=== PATIENT | female | born 1970 | race Caucasian/White ===

== ENCOUNTER 2024-02-12 14:29 | Day surgery (SDC) | payer BC, SELFPAY ==
[2024-02-12] VITALS (12 sets, daily range): BP systolic 133–149; BP diastolic 65–83
--- NOTE | 2024-02-12 07:29 | ED.GENMED ---
History of Present Illness
General
Chief Complaint: Abdominal Pain
Source: patient
Exam Limitations: none
Time Seen by Provider: 02/12/24 07:21
Nursing documentation reviewed up to this point in time: agreed with
Travel History
Have you had any contact with someone who has COVID-19?: No
Do you have any symptoms of coronavirus? Fever > 100 degrees, chills, cough, shortness of breath, sore throat, loss of taste or smell, muscle aches, or headache?: No
History of Present Illness
History of Present Illness:
53-year-old female without significant chronic medical conditions presenting to the emergency department today for concerns of right lower quadrant abdominal pain worsening since last night. Symptoms initially vague until ER abdomen now isolated to
the right lower quadrant. Associated nausea and some loose bowel movements. Patient does have an appendix.
Review of Systems
Review of Systems
Allergies reviewed?: Yes
All Other Systems: ROS reviewed and negative except as documented in HPI and ROS
Phy Exam
Physical Exam
Physical Exam:
GENERAL: Alert , in no apparent distress
EYE: pupils equal and reactive
NECK: Supple, no significant adenopathy.
ENT: o/p clr, mmm.
CARDIAC: Regular rate and rhythm .
LUNGS: Clear breath sounds bilaterally, no acute respiratory distress, no wheezes/rales/rhonchi
ABDOMEN: Right lower quadrant pain.
NEUROLOGICAL: Alert and oriented, no focal neuro deficits
SKIN: Warm and dry, skin intact.
MUSCULOSKELETAL: No edema, well perfused.
PSYCH: Normal and appropriate interaction.
Course
Orders/Labs/Results
Orders:
Orders
02/12/24 07:25
0.9% Sodium Chloride 1000 ml [Nss] 1,000 ml IV BOLUS
Ketorolac [Toradol] 15 mg IV NOW STA
Ondansetron Injectable [Zofran] 4 mg IV NOW STA
02/12/24 07:26
CT Abd/Pel (IV only)-DH only Urgent
Comment:
Reason For Exam: rlq pain
02/12/24 07:38
Complete Blood Count/With Diff Urgent
Comprehensive Metabolic Panel Urgent
Lipase Urgent
02/12/24 10:09
Urinalysis Reflex To Culture Urgent
Date Specimen was Collected: 02/12/24
Time Specimen was Collected: 09:51
02/12/24 11:59
CefTRIAXone [Rocephin] 1,000 mg IV NOW STA
MetroNIDAZOLE 500 MG/100 ML [Flagyl 500 mg] 100 ml IV NOW
02/12/24 12:19
Fentanyl Citrate/Pf [Sublimaze] 100 mcg .ROUTE .STK-MED ONE
Midazolam HCl [Versed] 2 mg .ROUTE .STK-MED ONE
02/12/24 12:25
Lidocaine HCl/Pf [Xylocaine-Mpf 1% Vial] 50 mg .ROUTE .STK-MED ONE
Propofol [Diprivan] 20 ml .ROUTE .STK-MED
Rocuronium [place] [Rocuronium] 50 mg .ROUTE .STK-MED ONE
02/12/24 12:26
Dexamethasone Sod Phosphate [Decadron] 20 mg .ROUTE .STK-MED ONE
Ondansetron Injectable [Zofran] 4 mg .ROUTE .STK-MED ONE
02/12/24 12:30
HYDROmorphone [Dilaudid] 0.25 mg IV PACU-Q5MPRN PRN
HYDROmorphone [Dilaudid] 0.5 mg IV PACU-Q5MPRN PRN
Meperidine [Demerol] 12.5 mg IV PACU-Q5MPRN PRN
Normosol (Mult Electrolytes) [Normosol-R] 1,000 ml IV PER PROTOCOL
Ondansetron Injectable [Zofran] 4 mg IV PACU-ONCEPRN PRN
Prochlorperazine [Compazine] 5 mg IV PACU-ONCEPRN PRN
Notify MD As Directed
Notify physician if: for SDS patients with known or suspected sleep obstructive sleep apnea, monitor in the
PACU.
Notify MD for any apneic/desaturation episodes
O2 Therapy [RESP] Urgent
Titrate/Wean O2 to maintain O2 sat greater than (%): 92
Special Instructions: -Provide supplemental oxygen to achieve O2 sat of 92% or greater.
-After 15 min, may wean O2 and discontinue if patient is able to maintain O2 sat of 92%
or greater during recovery period.
If patient is a discharge home, without oxygen therapy, notify anestheiologist if
unable to maintain O2 SAT of 92% or greater on room air for MD clearance.
Abnormal Lab Results
02/12/24
07:38
WBC 11.8 H 10^3/uL
(4.8-10.8)
Abs Immat Gran (auto) 0.1 H 10^3/uL
(0-0.05)
Absolute Neuts (auto) 8.8 H 10^3/uL
(1.4-6.5)
Absolute Monos (auto) 0.9 H 10^3/uL
(0.1-0.6)
Lymphocytes % 15.8 L %
(20.5-51.1)
Creatinine 0.5 L mg/dL
(0.6-1.0)
Glucose 119 H mg/dl
(70-99)
02/12/24 07:38
02/12/24 07:38
Vital Signs
Initial and Last Documented VS:
Initial Vital Signs
Temp Pulse Resp BP Pulse Ox
98.3 F 104 18 144/83 100
02/12/24 07:00 02/12/24 07:00 02/12/24 07:00 02/12/24 07:00 02/12/24 07:00
Last Documented Vital Signs
Temp Pulse Resp BP Pulse Ox
98.3 F 104 18 144/83 100
02/12/24 07:00 02/12/24 07:00 02/12/24 07:00 02/12/24 07:00 02/12/24 07:00
MDM/Problems Addressed
MDM/Problems Addressed:
53-year-old female presenting to the emergency department today with concerns of right lower quadrant pain starting last night ongoing nausea some loose and bowel movements. Here patient is tenderness palpation of the right lower quadrant
concerning for appendicitis CT scan ordered for further assessment. CT scan showing acute uncomplicated appendicitis. Case discussed with general surgery saw the patient and will prep for surgery. Patient was started on IV antibiotics otherwise
stable throughout ER stay.
*Critical Care Note
Total Time (30-74mins, 75-104mins- exclusive of procedures): Not Applicable
ED Attending Note
-
Portions of this chart may have been created with voice recognition software.� Occasional wrong word or��sound alike� substitutions may have occurred due to the inherent limitations of voice recognition software.
Discharge Plan
Departure
Patient Disposition: Admit
Date of Disposition: 02/12/24
Time of Disposition: 12:02
Admit to: Med/Surg
Admit to doctor: Jose Raul
Presentation/result/management discussed w/ accepting MD/DO: General surgery
Patient with high blood pressure during this ER visit?: No
Condition: Good
Covid-19: Not Applicable
Discharge Problem:
Acute appendicitis
Prescriptions:
No Action
TheraTears 0.25 % Drops
1 drp BOTH EYES DAILY
fluticasone propionate 50 mcg/actuation [place],Suspension
1 spray INTRANASAL DAILY PRN (Reason: nasal congestion)
Referrals:
Carlos Kohler MD [Family Provider] -
Interventions
Interventions:
ED- Fall Risk Assessment Last Done: 02/12/24 08:03
*ED COVID-19 Vaccine History Last Done: 02/12/24 07:00
NW-Qdrzrh-Oldhqgwyon Assessment Last Done: 02/12/24 08:03
Discharge Date and Time
Print Language: FRENCH
[2024-02-12] MEDS: TORADOL 15 MG IV (07:45)
[2024-02-12 07:54] LABS: % Basophils 0.3 % (0-2); % Eosinophils 1.3 % (0-6); % Immature Granulocytes 0.4 % (0-0.5); % Lymphocytes 15.8 % (20.5-51.1); % Monocytes 7.5 % (1.7-9.3); % Neutrophils 74.7 % (42.2-75.2); Absolute Eosinophils 0.2 10^3/uL (0-0.7); Absolute Immature Granulocytes 0.1 10^3/uL (0-0.05); Absolute Lymphocytes 1.9 10^3/uL (1.2-3.4); Absolute Monocytes 0.9 10^3/uL (0.1-0.6); Absolute Neutrophils 8.8 10^3/uL (1.4-6.5); Hematocrit 37.9 % (37.0-47.0); Hemoglobin 12.7 g/dL (12.0-16.0); Mean Corp Hgb Conc. 33.5 g/dL (33.0-37.0); Mean Corpuscular Volume 86.5 fL (81.0-99.0); Mean Platelet Volume 9.4 fL (7.4-10.4); Nucleated Red Blood Cells % 0 %; Platelet Count 291 10^3/uL (130-400); Red Blood Cell Count 4.38 10^6/uL (4.20-5.40); Red Cell Dist. Width 13.6 % (11.5-14.5); White Blood Cell Count 11.8 10^3/uL (4.8-10.8)
[2024-02-12] MEDS: NSS 1000 IV (08:02)
[2024-02-12] MEDS: ZOFRAN 4 MG IV (08:03)
[2024-02-12 08:06] LABS: ALT (SGPT) 26 U/L (0-35); AST (SGOT) 20 U/L (14-36); Albumin 4.3 g/dl (3.5-5.0); Alkaline Phosphatase 71 U/L (38-126); Blood Urea Nitrogen 10 mg/dl (7-17); Calcium 9.5 mg/dl (8.4-10.2); Carbon Dioxide 28 mmol/L (22-30); Chloride 104 mmol/L (98-107); Glucose 119 mg/dl (70-99); Lipase 76 U/L (23-300); Potassium 4.4 mmol/L (3.5-5.1); Sodium 137 mmol/L (135-145); Total Bilirubin 0.5 mg/dl (0.2-1.3); Total Protein 7.1 g/dl (6.3-8.2); eGFR > 60.00
[2024-02-12 10:15] LABS: Urine Albumin Negative (Neg - Trace); Urine Bilirubin Negative (Negative); Urine Character Clear (Clear); Urine Color Yellow; Urine Glucose Negative (Negative); Urine Ketone Negative (Negative); Urine Leukocyte Negative (Negative); Urine Nitrite Negative (Negative); Urine Occult Blood Negative (Negative); Urine Specific Gravity 1.015 (<1.030); Urine Urobilinogen Negative (Neg - 1+)
--- NOTE | 2024-02-12 12:38 | CON.GS ---
Medical History
-
Chief Complaint: RLQ pain
History of Present Illness:
Patient is a 53 yo F with a PMH morbid obesity, GERD, s/p laparoscopic supracervical hysterectomy, s/p diagnostic laparoscopy and removal of endometrial implant, and s/p who presents with approximately 24 hours of RLQ abdominal pain.
Angie states that her symptoms began acutely yesterday afternoon. She initially described more diffuse generalized abdominal pain. Her pain is localized to the RLQ. She describes a sharp pain. Associated nausea, but no vomiting. No fevers or
chills. She reports some looser stools. She denies any chronic GI issues. No personal or family history of IBD or colon cancers. No urinary symptoms.
Past Medical History
Past Medical History: GERD and Other (Obesity)
Past Surgical History: Gynecological (Laparoscopic supracervical hysterectomy, diagnostic laparoscopy and removal of endometrial implant)
Social History
Tobacco: Non-Smoker
Alcohol: Occasional
Drug: None
Personal:
Living: With Family
Family History
Family History: Reviewed & Noncontributory
Allergies / Home Medications
Allergy/AdvReac Type Severity Reaction Status Date / Time
Penicillins Allergy Unknown Verified 02/12/24 07:01
�Medication �Instructions �Recorded �Confirmed �Type
carboxymethylcellulose sodium 0.25 1 drp BOTH EYES DAILY Eye Condition 02/12/24 02/12/24 History
% eye drops (TheraTears)
fluticasone propionate 50 1 spray intranasal DAILY PRN nasal 02/12/24 02/12/24 History
mcg/actuation nasal congestion
spray,suspension
Review of Systems
-
A 10 point review of systems was completed, and was negative except as per HPI.
Physical Exam
Vital Signs
Temp Pulse Resp BP Pulse Ox
98.3 F 104 18 144/83 100
02/12/24 07:00 02/12/24 07:00 02/12/24 07:00 02/12/24 07:00 02/12/24 07:00
Lab Results
02/12/24 07:38
02/12/24 07:38
WBC 11.8 10^3/uL (4.8-10.8) H 02/12/24 07:38
Hgb 12.7 g/dL (12.0-16.0) 02/12/24 07:38
Hct 37.9 % (37.0-47.0) 02/12/24 07:38
Plt Count 291 10^3/uL (130-400) 02/12/24 07:38
Abs Immat Gran (auto) 0.1 10^3/uL (0-0.05) H 02/12/24 07:38
Neutrophils % 74.7 % (42.2-75.2) 02/12/24 07:38
Physical Exam
General: Well Developed, Well Nourished and No Apparent Distress
HEENT: Normocephalic and Anicteric
Respiratory: Non Labored Respirations
Cardiac: Regular Rhythm
GI: Soft, Tender (RLQ), Incisions (Well healed), Obese (Limited exam) and Other (Non-peritoneal)
Musculoskeletal: No Edema
Skin: Warm and Dry
Neuro: Nonfocal/Grossly Intact
Data Reviewed
-
CT Scan: Image Personally Visualized and interpreted and Report Reviewed by me
Labs: Labs Reviewed by me
Assessment / Plan
-
Patient is a 53 yo F p/w acute appendicitis
The natural history and pathophysiology of appendicitis was discussed. Anatomy was reviewed. CT scan imaging as a relates to her appendix was reviewed. Options for management including medical management with antibiotics versus surgical
management with appendectomy were considered and discussed. The pros and cons of both approaches was discussed. Specifically, we discussed failure of medical management and future episodes of appendicitis versus surgical risks. Patient would like
to proceed with appendectomy.
Plan for laparoscopic appendectomy. The procedure itself, as well as the risks, benefits, and alternatives was discussed. Specifically, we discussed the risks of bleeding, infection, injury to surrounding structures (bowel, bladder), staple line
leak, need for open procedure. Typical postprocedure recovery was discussed. All questions answered. Consent signed.
-- Laparoscopic appendectomy
-- NPO, IVF
-- Ciprofloxacin and Flagyl
--- NOTE | 2024-02-12 12:43 | W.SUR.PREOP ---
Pre-Operative Surgical Note
-
I have examined this patient prior to the performance of the scheduled procedure.
The patient's condition is unchanged from the time of the current History and
Physical and the patient is able to undergo the scheduled procedure.
--- NOTE | 2024-02-12 14:16 | W.IMMPOSTOP ---
Addendum entered and electronically signed by Gustavo Blunt MD 02/12/24 14:28:
[facility]#[id number]
Original Note:
Surgical Immed Post Op Note
-
Primary Surgeon: Jose Raul
Assisting Surgeon: RITA Wilcox
Pre-op Diagnosis: Acute appendicitis
Post-op Diagnosis: Acute appendicitis
Procedure Performed: Laparoscopic appendectomy
Anesthesia Type: General
Specimen / Cultures:
1. Appendix
Estimated Blood Loss: 11 cc
Complications: None
Operative Findings:
1. Severely inflamed appendix, no evidence of perforation, mild localized purulence in RLQ
2. Mesentery take with Ligasure, base with ramos load stapler
[2024-02-12] MEDS: NORMOSOL-R 1000 IV (15:42)
[2024-02-12] MEDS: LEVAQUIN 100 IV (15:48)
[2024-02-12] MEDS: LOVENOX 40 MG SC (17:03)
[2024-02-12] MEDS: TYLENOL 650 MG PO ×2 (17:03→20:21)
--- NOTE | 2024-02-12 17:07 | PTCARENOTE ---
Patient admitted post laparoscopic appendectomy.She rates her pain at a 5 out of 10.All incisions are clean and dry with no drainage.Vital signs are stable.The patient ambulated to the bathroom as soon as she arrived on the floor.The patient is in
her bed with the call greene in reach.Her is at the bedside.
[2024-02-12] MEDS: FLAGYL 500 MG 100 IV (22:46)
[2024-02-13] MEDS: TYLENOL PO (00:26)
[2024-02-13 03:20] VITALS: BP 154/80
[2024-02-13] MEDS: FLAGYL 500 MG 100 IV (05:28)
[2024-02-13] MEDS: TYLENOL 650 MG PO ×2 (05:29→09:00)
[2024-02-13 08:05] VITALS: BP 151/80
[2024-02-13 08:16] VITALS: BP 151/80
--- NOTE | 2024-02-13 08:49 | W.PN.GS2 ---
Today's Communication / Plan
-
-- DC today
Assessment / Plan
-
Patient is a 53 yo F POD#1 s/p laparoscopic appendectomy
Recovering well. No postoperative concerns.
-- Regular diet
-- Pain control: Tylenol, Toradol, oxycodone
-- Antibiotics: Zosyn, transition to Augmentin for total of 7 days postoperatively
-- HLIV
-- Lovenox for DVT
-- Protonix for GI
-- DC today
Subjective Data
-
Date of Service: February 13, 2024
Feels much improved. Pain well-controlled. No nausea or vomiting. No fevers.
Objective Data
-
Intake and Output
02/12/24 02/13/24 02/14/24
06:59 06:59 06:59
Intake Total 1610 / 1610
Balance 1610 / 1610
Intake:
Oral fluids 360 / 360
IV fluids (Total) 1150 / 1150
Normosol 150 / 150
IV piggybacks 100 / 100
Other:
Number of approximated MODERATE 3
amounts of urine
Vital Signs
Temp Pulse Resp BP Pulse Ox
98.4 F 74 17 151/80 95
02/13/24 08:05 02/13/24 08:05 02/13/24 08:05 02/13/24 08:05 02/13/24 08:05
Lab Results
02/12/24 07:38
02/12/24 07:38
Calcium 9.5 mg/dl (8.4-10.2) 02/12/24 07:38
Total Bilirubin 0.5 mg/dl (0.2-1.3) 02/12/24 07:38
AST 20 U/L (14-36) 02/12/24 07:38
ALT 26 U/L (0-35) 02/12/24 07:38
Alkaline Phosphatase 71 U/L (38-126) 02/12/24 07:38
Total Protein 7.1 g/dl (6.3-8.2) 02/12/24 07:38
Albumin 4.3 g/dl (3.5-5.0) 02/12/24 07:38
Physical Exam
-
Gen: NAD
Abd: soft, NT/ND, non-peritoneal, incisions - c/d/i - no erythema, ecchymosis or drainage
--- NOTE | 2024-02-13 08:52 | W.DS.TRANS ---
DC Summary - [facility]
-
Discharge Instructions:
Discharge Diagnosis/Procedures Laparoscopic appendectomy
Diet Regular,Low Fat
Activity No strenuous activity
Additional Activity No heavy lifting (>20 lbs) or strenuous
activities for 2 weeks postoperatively
Driving Restrictions No driving if too sore or taking narcotics
Bathing Restrictions OK to Shower
Wound Care Keep incisions clean and dry. Glue will flake
off in 2 to 3 weeks. Stitches will dissolve.
Instructions:
Stand-Alone Forms:
Changes to Home Medications: Yes
Discharge Medications:
DC Medications w/original date entered in [facility]
acetaminophen 325 mg tablet 650 mg (2 x 325 mg) PO Q4HPRN PRN mild pain #1 tab 02/12/24
carboxymethylcellulose sodium 0.25 % eye drops (TheraTears) 1 drp BOTH EYES DAILY Eye Condition 02/12/24
ciprofloxacin HCl 500 mg tablet 500 mg PO Q12H 6 days #12 tabs 02/12/24
fluticasone propionate 50 mcg/actuation nasal spray,suspension 1 spray intranasal DAILY PRN nasal congestion 02/12/24
ibuprofen 200 mg tablet 400 - 600 mg (2 - 3 x 200 mg) PO Q6HPRN PRN moderate pain #1 tab 02/12/24
metronidazole 500 mg tablet 500 mg PO Q8H 6 days #18 tabs 02/12/24
oxycodone 5 mg tablet 5 mg PO Q4HPRN PRN breakthrough/severe pain #10 tabs 02/12/24
Home Medication Changes
Pending Results: No
[2024-02-13] MEDS: PROTONIX IV 40 MG IV (09:00)
[2024-02-13] MEDS: NSS (PRESERVATIVE FREE) 10 ML IV (09:00)
== END 2024-02-13 09:29 | disposition home or self-care (01) ==
LOC: PACU 14:29
PROVIDERS: Physician Assistant; ATTENDING PHYSICIAN Surgery; EMERGENCY PHYSICIAN Emergency Medicine; FAMILY PHYSICIAN Family Medicine
DX: K35.30 Acute appendicitis with localized peritonitis, without perforation or gangrene (principal); K35.80 Unspecified acute appendicitis; R10.31 Right lower quadrant pain; E66.01 Morbid (severe) obesity due to excess calories
CPT/HCPCS: 44970; 88304; 74177; 80053; 81003; 83690; 85025; 96361; 96374; 96375; 99285; C1729; Q9967